=== PATIENT | female | born 1950 | race Caucasian/White ===

== ENCOUNTER 2020-11-20 17:27 | Emergency (ER) | payer MEDICARE ==
[2020-11-20] MEDS ORDERED: Sodium Chloride 0.9% 10 ML Syringe FLUSH PRN (17:38)
[2020-11-20] MEDS ORDERED: Acetaminophen 500 MG Tab PO STA (17:40)
[2020-11-20] MEDS ORDERED: Sodium Chloride 0.9% 1,000 ML IV SCH (17:45)
[2020-11-20] MEDS ORDERED: Morphine 2 MG/ML SYRINGE IVPUSH ONE (18:23)
[2020-11-20] MEDS ORDERED: Ondansetron 4 MG/2 ML SDV IVPUSH STA (18:25)
[2020-11-20] MEDS ORDERED: Iopamidol 755 Mg/ML 100 ML Bottle IV ONE (18:34)
--- NOTE | 2020-11-20 19:07 | EDM.PDOC ---
ED HPI GENERAL MEDICAL PROBLEM - General Chief Complaint: Genitourinary Problem Stated Complaint: fever/abdominal pain Time Seen by Provider: 11/20/20 17:35 Source of Information: Reports: Patient History Limitations: Reports: No Limitations - History of Present Illness INITIAL COMMENTS - FREE TEXT/NARRATIVE: Patient presented to the ED because of fever,chills and LLQ pain which started yesterday. The pain is sharp and cramping,5/10, with associated nausea but no vomiting. There is no urinary symptoms although she is incontinent of urine. She denies having cough or cold symptoms. She is not vaccinated with Covid and she doesn't know of any exposure to someone who tested positive for Covid. - Related Data Allergies Allergy/AdvReac Type Severity Reaction Status Date / Time No Known Allergies Allergy Verified 11/20/20 17:44 Home Meds: Home Meds Amoxicillin/Potassium Clav [Amox Tr-K Clv 875-125 mg Tab] 1 each PO BID 09/07/14 [History] Budesonide/Formoterol Fumarate [Symbicort 80-4.5 MCG] 2 puff INH BID 09/07/14 [History] Dextromethorphan/guaiFENesin [Mucinex DM ER 600-30 MG] 1 tab PO ASDIRECTED PRN 09/07/14 [History] Hydrochlorothiazide/Lisinopril [Lisinopril-HCTZ 20-25 MG] 1 tab PO DAILY 09/07/14 [History] Levothyroxine 150 mcg PO ACBREAKFAST 09/07/14 [History] Naproxen Sodium 220 mg PO Q12HR PRN 09/07/14 [History] Simvastatin 40 mg PO QPM 09/07/14 [History] Warfarin Sodium [Jantoven] 1.5 - 2 tab PO ASDIRECTED 09/07/14 [History] guaiFENesin/Phenylephrine HCl [Mucus Relief Sinus] 1 each PO ASDIRECTED PRN 09/07/14 [History] Levofloxacin [Levaquin] 500 mg PO DAILY #10 tablet 11/20/20 [Rx] ED ROS GENERAL - Review of Systems Review Of Systems: See Below Constitutional: Reports: Fever, Chills HEENT: Reports: No Symptoms Respiratory: Reports: No Symptoms Cardiovascular: Reports: No Symptoms Endocrine: Reports: No Symptoms GI/Abdominal: Reports: Abdominal Pain : Reports: Incontinence Musculoskeletal: Reports: No Symptoms Skin: Reports: No Symptoms Neurological: Reports: No Symptoms Psychiatric: Reports: No Symptoms Hematologic/Lymphatic: Reports: No Symptoms ED EXAM, GI/ABD - Physical Exam Exam: See Below Exam Limited By: No Limitations General Appearance: Alert, No Apparent Distress Ears: Normal External Exam, Normal Canal Nose: Normal Inspection, Normal Mucosa, No Blood Throat/Mouth: Normal Inspection, Normal Lips, Normal Teeth Head: Atraumatic, Normocephalic Neck: Normal Inspection, Supple, Non-Tender, Full Range of Motion Respiratory/Chest: No Respiratory Distress, Lungs Clear, Normal Breath Sounds, No Accessory Muscle Use, Chest Non-Tender Cardiovascular: Normal Peripheral Pulses, Regular Rate, Rhythm, No Edema, No Gallop, No JVD, No Murmur, No Rub GI/Abdominal Exam: Normal Bowel Sounds, Soft, No Organomegaly, No Distention, Other (LLQ T and L adnexal T) Back Exam: Normal Inspection, Muscle Spasm, Vertebral Tenderness Course - Vital Signs Text/Narrative:: Lab/CT abd-pelvis result was reviewed and discussed with patient NS 1 L bolus Zofran 4 mg IV x1 Morphine 4 mg IV x1 Tylenol 1000 mg PO x1 Levaquin 750 mg po x1 I did call Whitney because one of her BC was positive. She is already taking Levaquin 500 mg daily and she said she is feeling better but slowly. I told her to be admitted for IV antibiotic treatment but she psaid she prefer to go to [facility] in [place] instead of being admitted at [facility]. I also talked to her daughter Michelle who is a RN at [facility], formerly [facility] for an update about the plan for Whitney. Last Recorded V/S: Last Vital Signs Temp 37.4 C 11/20/20 21:30 Pulse 90 11/20/20 21:30 Resp 18 11/20/20 21:30 BP 149/63 H 11/20/20 21:30 Pulse Ox 91 L 11/20/20 21:30 - Orders/Labs/Meds Labs: Laboratory Tests 11/20/20 11/20/20 11/20/20 Range/Units 17:55 17:55 17:55 WBC 10.9 H (3.0-10.3) x10-3/uL RBC 5.05 (3.60-5.20) x10(6)uL Hgb 13.9 (11.4-15.5) g/dL Hct 41.8 (34.2-48.2) % MCV 82.9 (76.7-100.5) fL MCH 27.5 (23.9-33.9) pg MCHC 33.1 (31.9-34.8) g/dL RDW 15.9 (12.3-16.5) % Plt Count 238 (151-488) x10(3)uL MPV 7.4 (7.1-12.4) fL Neut % (Auto) 82.5 H (30.8-76.2) % Lymph % (Auto) 7.5 L (18.4-52.1) % Ransom % (Auto) 9.2 (4.4-15.7) % Eos % (Auto) 0.3 L (0.6-8.1) % Baso % (Auto) 0.5 (0.2-1.5) % Neut # (Auto) 9.0 H (1.5-6.3) x10-3/uL Lymph # (Auto) 0.8 L (1.0-4.4) x10-3/uL Ransom # (Auto) 1.0 (0.3-1.0) x10-3/uL Eos # (Auto) 0.0 (0.0-0.8) x10-3/uL Baso # (Auto) 0.1 (0.0-0.1) x10-3/uL Sodium 138 (135-145) mmol/L Potassium 4.0 (3.5-5.3) mmol/L Chloride 100 (100-110) mmol/L Carbon Dioxide 31 (21-32) mmol/L BUN 15 (7-18) mg/dL Creatinine 1.4 H (0.55-1.02) mg/dL Est Cr Clr Drug Dosing 33.21 mL/min Estimated GFR (MDRD) 37 L (>60) BUN/Creatinine Ratio 10.7 (9-20) Glucose 109 (80-116) mg/dL Lactic Acid 1.0 (0.4-2.0) mmol/L Calcium 8.9 (8.6-10.2) mg/dL Total Bilirubin 1.1 (0.1-1.3) mg/dL AST 21 (5-25) IU/L ALT 21 (12-36) U/L Alkaline Phosphatase 73 (56-112) IU/L C-Reactive Protein (0.5-0.9) mg/dL Total Protein 6.9 (6.0-8.0) g/dL Albumin 3.3 (3.2-4.6) g/dL Globulin 3.6 g/dL Albumin/Globulin Ratio 0.9 Amylase (25-115) U/L Lipase (73-393) U/L Urine Color (YELLOW) Urine Appearance (CLEAR) Urine pH (5.0-6.5) Ur Specific [place] (1.010-1.025) Urine Protein (NEGATIVE) mg/dL Urine Glucose (UA) (NORMAL) mg/dL Urine Ketones (NEGATIVE) mg/dL Urine Occult Blood (NEGATIVE) Urine Nitrite (NEGATIVE) Urine Bilirubin (NEGATIVE) Urine Urobilinogen (NEGATIVE) mg/dL Ur Leukocyte Esterase (NEGATIVE) Urine RBC (0-5) Urine WBC (0-5) Ur Squamous Epith Cells (NS,R,O) Urine Bacteria (NS) SARS-CoV-2 RNA (SONDRA) (NEGATIVE) 11/20/20 11/20/20 11/20/20 Range/Units 17:55 17:55 17:55 WBC (3.0-10.3) x10-3/uL RBC (3.60-5.20) x10(6)uL Hgb (11.4-15.5) g/dL Hct (34.2-48.2) % MCV (76.7-100.5) fL MCH (23.9-33.9) pg MCHC (31.9-34.8) g/dL RDW (12.3-16.5) % Plt Count (151-488) x10(3)uL MPV (7.1-12.4) fL Neut % (Auto) (30.8-76.2) % Lymph % (Auto) (18.4-52.1) % Ransom % (Auto) (4.4-15.7) % Eos % (Auto) (0.6-8.1) % Baso % (Auto) (0.2-1.5) % Neut # (Auto) (1.5-6.3) x10-3/uL Lymph # (Auto) (1.0-4.4) x10-3/uL Ransom # (Auto) (0.3-1.0) x10-3/uL Eos # (Auto) (0.0-0.8) x10-3/uL Baso # (Auto) (0.0-0.1) x10-3/uL Sodium (135-145) mmol/L Potassium (3.5-5.3) mmol/L Chloride (100-110) mmol/L Carbon Dioxide (21-32) mmol/L BUN (7-18) mg/dL Creatinine (0.55-1.02) mg/dL Est Cr Clr Drug Dosing mL/min Estimated GFR (MDRD) (>60) BUN/Creatinine Ratio (9-20) Glucose (80-116) mg/dL Lactic Acid (0.4-2.0) mmol/L Calcium (8.6-10.2) mg/dL Total Bilirubin (0.1-1.3) mg/dL AST (5-25) IU/L ALT (12-36) U/L Alkaline Phosphatase (56-112) IU/L C-Reactive Protein 5.5 H* (0.5-0.9) mg/dL Total Protein (6.0-8.0) g/dL Albumin (3.2-4.6) g/dL Globulin g/dL Albumin/Globulin Ratio Amylase 33 (25-115) U/L Lipase 47 L (73-393) U/L Urine Color (YELLOW) Urine Appearance (CLEAR) Urine pH (5.0-6.5) Ur Specific [place] (1.010-1.025) Urine Protein (NEGATIVE) mg/dL Urine Glucose (UA) (NORMAL) mg/dL Urine Ketones (NEGATIVE) mg/dL Urine Occult Blood (NEGATIVE) Urine Nitrite (NEGATIVE) Urine Bilirubin (NEGATIVE) Urine Urobilinogen (NEGATIVE) mg/dL Ur Leukocyte Esterase (NEGATIVE) Urine RBC (0-5) Urine WBC (0-5) Ur Squamous Epith Cells (NS,R,O) Urine Bacteria (NS) SARS-CoV-2 RNA (SONDRA) (NEGATIVE) 11/20/20 11/20/20 Range/Units 19:00 19:30 WBC (3.0-10.3) x10-3/uL RBC (3.60-5.20) x10(6)uL Hgb (11.4-15.5) g/dL Hct (34.2-48.2) % MCV (76.7-100.5) fL MCH (23.9-33.9) pg MCHC (31.9-34.8) g/dL RDW (12.3-16.5) % Plt Count (151-488) x10(3)uL MPV (7.1-12.4) fL Neut % (Auto) (30.8-76.2) % Lymph % (Auto) (18.4-52.1) % Ransom % (Auto) (4.4-15.7) % Eos % (Auto) (0.6-8.1) % Baso % (Auto) (0.2-1.5) % Neut # (Auto) (1.5-6.3) x10-3/uL Lymph # (Auto) (1.0-4.4) x10-3/uL Ransom # (Auto) (0.3-1.0) x10-3/uL Eos # (Auto) (0.0-0.8) x10-3/uL Baso # (Auto) (0.0-0.1) x10-3/uL Sodium (135-145) mmol/L Potassium (3.5-5.3) mmol/L Chloride (100-110) mmol/L Carbon Dioxide (21-32) mmol/L BUN (7-18) mg/dL Creatinine (0.55-1.02) mg/dL Est Cr Clr Drug Dosing mL/min Estimated GFR (MDRD) (>60) BUN/Creatinine Ratio (9-20) Glucose (80-116) mg/dL Lactic Acid (0.4-2.0) mmol/L Calcium (8.6-10.2) mg/dL Total Bilirubin (0.1-1.3) mg/dL AST (5-25) IU/L ALT (12-36) U/L Alkaline Phosphatase (56-112) IU/L C-Reactive Protein (0.5-0.9) mg/dL Total Protein (6.0-8.0) g/dL Albumin (3.2-4.6) g/dL Globulin g/dL Albumin/Globulin Ratio Amylase (25-115) U/L Lipase (73-393) U/L Urine Color Yellow (YELLOW) Urine Appearance Clear (CLEAR) Urine pH 7.0 H (5.0-6.5) Ur Specific [place] 1.010 (1.010-1.025) Urine Protein Negative (NEGATIVE) mg/dL Urine Glucose (UA) Normal (NORMAL) mg/dL Urine Ketones Negative (NEGATIVE) mg/dL Urine Occult Blood Negative (NEGATIVE) Urine Nitrite Negative (NEGATIVE) Urine Bilirubin Negative (NEGATIVE) Urine Urobilinogen Normal (NEGATIVE) mg/dL Ur Leukocyte Esterase Negative (NEGATIVE) Urine RBC 0-5 (0-5) Urine WBC 0-5 (0-5) Ur Squamous Epith Cells Occasional (NS,R,O) Urine Bacteria Few H (NS) SARS-CoV-2 RNA (SONDRA) Negative (NEGATIVE) Meds: Medications Discontinued Medications Generic Name Dose Route Start Last Admin Trade Name Freq PRN Reason Stop Dose Admin Acetaminophen 1,000 mg 11/20/20 17:40 11/20/20 17:43 Acetaminophen 500 Mg Tab PO 11/20/20 17:41 1,000 mg NOW STA Administration Sodium Chloride 1,000 mls @ 999 mls/hr 11/20/20 17:45 11/20/20 18:02 Normal Saline IV 999 mls/hr ASDIRECTED PRAVEEN Administration Iopamidol 100 ml 11/20/20 18:34 11/20/20 18:55 Iopamidol 755 Mg/Ml 100 Ml Bottle IV 11/20/20 18:35 100 ml . DIRECTED ONE Administration Levofloxacin 500 mg 11/20/20 21:08 11/20/20 21:22 Levofloxacin 500 Mg Tab PO 11/20/20 21:09 500 mg NOW STA Administration Levofloxacin 250 mg 11/20/20 21:17 11/20/20 21:22 Levofloxacin 250 Mg Tab PO 11/20/20 21:18 250 mg NOW STA Administration Morphine Sulfate 4 mg 11/20/20 18:23 11/20/20 18:31 Morphine 2 Mg/Ml Syringe IVPUSH 11/20/20 18:24 4 mg ONETIME ONE Administration Ondansetron HCl 4 mg 11/20/20 18:25 11/20/20 18:31 Ondansetron 4 Mg/2 Ml Sdv IVPUSH 11/20/20 18:26 4 mg NOW STA Administration Sodium Chloride 10 ml 11/20/20 17:38 Sodium Chloride 0.9% 10 Ml Syringe FLUSH ASDIRECTED PRN Keep Vein Open Departure - Departure Time of Disposition: 19:30 Disposition: Home, Self-Care 01 Condition: Good Clinical Impression: Urine incontinence, Fever, Dehydration - Discharge Information Prescriptions: Levofloxacin [Levaquin] 500 mg PO DAILY #10 tablet Instructions: Fever, Adult, Urinary Incontinence Referrals: Ana M Braden [facility] [Primary Care Provider] - Forms: ED Department Discharge Additional Instructions: Please read discharge instructions on dehydration and febrile illness Call your doctor tomorrow and ask if you can discontinue your water pill or give you a medicine for urine incontinence Take levaquin 500 mg daily until you blood culture result is back Tylenol 1000 mg every 8 hours as needed for fever/pain Follow up as needed Sepsis Event Note (ED) - Evaluation Sepsis Screening Result: No Definite Risk
[2020-11-20] MEDS ORDERED: Levofloxacin 500 MG Tab PO STA (21:08)
[2020-11-20] MEDS ORDERED: Levofloxacin 250 MG Tab PO STA (21:17)
--- NOTE | 2020-11-21 16:29 | CR ---
INDICATION: Fever. CHEST ONE VIEW: AP upright portable view of the chest 11/20/20 was compared with 06/11/16 and 09/07/14. 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 The heart did not appear grossly enlarged. Upper lung field pulmonary vasculature is slightly prominent raising question of a mild degree of pulmonary vascular congestion. This can be of other than cardiac etiology and should be correlated clinically. No consolidating pneumonia or effusion was identified. Overlying snaps are noted. IMPRESSION: 1. There is an appearance of exogenous obesity. 2. Pulmonary vascular prominence in the upper lung calloway raises question of a mild or early CHF or noncardiac cause of pulmonary vascular congestion - correlate clinically. MTDD
== END 2020-11-20 21:54 | disposition home or self-care (01) ==
LOC: FB.ED 17:27
DX: R50.9 Fever, unspecified (principal); E86.0 Dehydration; R32 Unspecified urinary incontinence; Z79.01 Long term (current) use of anticoagulants; Z79.899 Other long term (current) drug therapy; Z20.822 Contact with and (suspected) exposure to COVID-19
CPT/HCPCS: 36415; 71045; 74177; 80053; 81001; 82150; 83605; 83690; 85025; 86140; 87040; 87077; 96374; 96375; 99285; A9270; J2270; J2405; J7030; Q9967; U0002; 87186